=== PATIENT | male | born 2000 ===

== ENCOUNTER 2025-02-14 17:07 | Emergency (ER) | payer OTHER ==
[~2025-02-14] VITALS: Ht 182.9 cm; Wt 122.5 kg
[~2025-02-14 17:07] MED LIST: AMOX250 PO; AMOX500 PO; AMOX50SU PO; Bactrim Ds Tab1 EACH PO; CEPH500 PO; CLOT1TL TOP; CODACEE120 PO; COLD; COUGH; Cleocin HCl300 MG PO; DIPHTC TP; DOXY100 PO; HYDACE5 PO; HYDCOR1TC TOP; IBUP100S PO; IBUP600 PO; IBUP800 PO; Keflex500 MG PO; Pepcid40 MG PO; RXHYDACE PO; SUCR1 PO; SULTRIDS PO; TOBDEXOPSU OP; Veetids 500500 MG PO; Zofran Odt4 MG SL
[2025-02-14 17:48] VITALS: BP 154/83
[2025-02-14 17:59] LABS: BASOPHILS ABSOLUTE AUTO 0.06 K/mm3 (0.00-0.23); BASOPHILS PERCENT AUTO 0 % (0-2); EOSINOPHILS ABSOLUTE AUTO 0.56 K/mm3 (0.00-0.68); EOSINOPHILS PERCENT AUTO 4 % (0-6); Hematocrit 42.8 % (37.0-53.0); Hemoglobin 14.9 g/dL (13.5-17.5); IMMATURE GRAN ABSOLUTE AUTO 0.24 K/mm3 (0.00-0.10); IMMATURE GRAN PERCENT AUTO 2 % (0-1); LYMPHOCYTES ABSOLUTE AUTO 3.81 K/mm3 (0.84-5.20); LYMPHOCYTES PERCENT AUTO 28 % (21-46); MONOCYTES ABSOLUTE AUTO 1.32 K/mm3 (0.16-1.47); MONOCYTES PERCENT AUTO 10 % (4-13); Mean Corpuscular HGB Conc 34.8 g/dL (31.5-36.5); Mean Corpuscular Volume 96 fL (80-100); NEUTROPHILS ABSOLUTE AUTO 7.72 K/mm3 (1.96-9.15); NEUTROPHILS PERCENT AUTO 56 % (41-73); NRBC ABSOLUTE 0.00 K/mm3 (0.00-0.02); NRBC Auto 0.0 /100 WBC (0.0-0.2); Platelet Count 287 K/mm3 (150-400); RDW Coefficient Variation 13.4 % (11.7-14.2); RDW Standard Deviation 47.4 fL (35.1-46.3)
[2025-02-14 18:18] LABS: Alanine Aminotransfer (ALT/SGP 60.0 U/L (12-78); Albumin, Blood 3.6 g/dL (3.4-5.0); Albumin/Globulin Ratio 1.1 (0.8-1.8); Anion Gap 9.0 mmol/L (3-11); Aspartate Aminotrans (AST/SGOT 34.0 U/L (12-37); Bilirubin, Total 0.2 mg/dL (0.1-1.0); Blood Urea Nitrogen 10.0 mg/dL (8-24); CO2, Blood 25.0 mmol/L (21-32); Calcium, Blood 8.3 mg/dL (8.5-10.1); Chloride, Blood 111.0 mmol/L (98-108); Creatinine, Blood 0.74 mg/dL (0.60-1.20); Globulin, Blood 3.2 g/dL (2.2-4.0); Glucose, Blood 121.0 mg/dL (70-99); Potassium, Blood 3.8 mmol/L (3.5-5.5); Sodium, Blood 141.0 mmol/L (136-145); Total Protein, Blood 6.8 g/dL (6.4-8.2)
[2025-02-14] MEDS ORDERED: RX Prepack 6 Tabs Oxycodone 5mg UD ONE (19:35)
[2025-02-14] MEDS ORDERED: Ketorolac Tromethamine 30mg Vial IV ONE (19:35)
[2025-02-14] MEDS ORDERED: IBUP600 PO (19:36)
== END 2025-02-14 20:00 | disposition home or self-care (01) ==
LOC: ER 17:07
PROVIDERS: Emergency Medicine
DX: S22.069A Unspecified fracture of T7-T8 vertebra, initial encounter for closed fracture (principal); S20.219A Contusion of unspecified front wall of thorax, initial encounter; S09.90XA Unspecified injury of head, initial encounter; V86.55XA Driver of 3- or 4- wheeled all-terrain vehicle (ATV) injured in nontraffic accident, initial encounter
CPT/HCPCS: 70450; 71260; 72125; 74177; 80053; 85025; 96374; 99284-25; A9270; J1885; Q9967